=== PATIENT | male | born 1990 | race Caucasian/White ===

== ENCOUNTER 2019-07-01 10:14 | Emergency (ER) | payer SELFPAY ==
[~2019-07-01] VITALS: Ht 172.7 cm; Wt 90.0 kg
[~2019-07-01 10:14] MED LIST: IBUP800T48 PO; MUPI22OI2 TOP; SULF1TAB31 PO
[2019-07-01 10:19] VITALS: BP 147/68; PULSE 68; RESP 18; Ht 172.7 cm; Wt 90.0 kg
[2019-07-01] MEDS ORDERED: LIDOCAINE 1% (MDV) 20 ML INJ SC ONE (11:30)
[2019-07-01] MEDS ORDERED: IBUPROFEN 800 MG TAB PO ONE (11:30)
== END 2019-07-01 12:09 | disposition home or self-care (01) ==
LOC: FTE 10:14
DX: S51.811A Laceration without foreign body of right forearm, initial encounter (principal); F17.210 Nicotine dependence, cigarettes, uncomplicated; W26.8XXA Contact with other sharp object(s), not elsewhere classified, initial encounter; Y92.89 Other specified places as the place of occurrence of the external cause